=== PATIENT | male | born 1960 | race Hispanic/Latino ===

== ENCOUNTER 2023-10-23 00:53 | Emergency (ER) | payer OTHER ==
[~2023-10-23] VITALS: Ht 165.1 cm; Wt 79.4 kg
[2023-10-23 01:19] LABS: BASOPHILS # (AUTO) 0.03 K/uL (0.00-0.20); BASOPHILS % (AUTO) 0.2 % (0.0-5.0); EOSINOPHILS # (AUTO) 0.01 K/uL (0.00-0.70); EOSINOPHILS % (AUTO) 0.1 % (0.0-8.0); HEMATOCRIT 43.2 % (42-54); IMMATURE GRANULOCYTE ABSOLUTE 0.07 K/uL (0-1); LYMPHOCYTES % (AUTO) 6.5 % (21.0-51.0); MEAN CORPUSCULAR HEMOGLOBIN 28.1 pg (27.0-33.0); MEAN CORPUSCULAR VOLUME 82.4 fL (79-99); MONOCYTES # (AUTO) 0.6 K/uL (0.1-1.0); MONOCYTES % (AUTO) 3.7 % (3.0-13.0); NEUTROPHILS # (AUTO) 14.1 K/uL (1.8-7.7); NEUTROPHILS % (AUTO) 89.1 % (40.0-77.0); PLATELET COUNT (AUTO) 293 K/uL (130-400); RED BLOOD CELL COUNT(AUTO) 5.24 MIL/uL (4.50-6.20); RED CELL DISTRIBUTION WIDTH 14.8 % (11.0-15.5); WHITE BLOOD COUNT (AUTO) 15.8 K/uL (4.8-10.8)
[2023-10-23] MEDS: FAMOTIDINE 20MG VIAL IV ONE (01:24)
[2023-10-23] MEDS: ONDANSETRON 4MG INJ IVP ONE (01:24)
[2023-10-23 01:28] LABS: CREATININE 0.9 mg/dL (0.5-1.3); POTASSIUM 3.8 mmol/L (3.5-5.1)
[2023-10-23 01:33] LABS: ALBUMIN 3.9 g/dL (3.5-5.0); BILIRUBIN,TOTAL 0.5 mg/dL (0.2-1.0); TOTAL PROTEIN, SERUM 7.3 g/dL (6.0-8.3)
[2023-10-23] MEDS: 0.9%NACL 1000ML 1,000 ML IV ONE (01:38)
[2023-10-23] MEDS: MORPHINE 2 MG SYG IVP ONE (01:38)
[2023-10-23] MEDS: KETOROLAC 15MG/ML VIAL (15MG/ML) IV ONE (03:15)
[2023-10-23] MEDS: LIDOCAINE HCL 2% VISCOUS 15 ML UDCUP PO ONE (03:53)
[2023-10-23] MEDS: MAG/ALUM/SIMETH 30 ML UDCUP PO ONE (03:53)
[2023-10-23 04:08] VITALS: BP 141/67; PULSE 62; RESP 16; O2SAT 97
== END 2023-10-23 04:10 | disposition home or self-care (01) ==
LOC: EDH 00:53
DX: K21.00 Gastro-esophageal reflux disease with esophagitis, without bleeding (principal); E11.9 Type 2 diabetes mellitus without complications; Z87.19 Personal history of other diseases of the digestive system; Z98.890 Other specified postprocedural states
CPT/HCPCS: 99285; 74176; 96374; 96375; 96361; 84484; 80053; 83690; 85025; 36415; J3490; J2270; J2405; J1885

== ENCOUNTER 2023-10-24 06:20 | Inpatient (IN) | payer OTHER ==
[~2023-10-24] VITALS: Ht 167.6 cm; Wt 95.7 kg
[2023-10-24 07:04] LABS: BASOPHILS # (AUTO) 0.05 K/uL (0.00-0.20); BASOPHILS % (AUTO) 0.3 % (0.0-5.0); EOSINOPHILS # (AUTO) 0.08 K/uL (0.00-0.70); EOSINOPHILS % (AUTO) 0.4 % (0.0-8.0); HEMATOCRIT 41.3 % (42-54); IMMATURE GRANULOCYTE ABSOLUTE 0.11 K/uL (0-1); LYMPHOCYTES # (AUTO) 1.2 K/uL (1.0-4.8); LYMPHOCYTES % (AUTO) 6.2 % (21.0-51.0); MEAN CORPUSCULAR HGB CONC 33.7 g/dL (32.0-36.0); MEAN CORPUSCULAR VOLUME 83.1 fL (79-99); MONOCYTES # (AUTO) 1.7 K/uL (0.1-1.0); MONOCYTES % (AUTO) 8.7 % (3.0-13.0); NEUTROPHILS # (AUTO) 16.5 K/uL (1.8-7.7); NEUTROPHILS % (AUTO) 83.8 % (40.0-77.0); PLATELET COUNT (AUTO) 253 K/uL (130-400); RED BLOOD CELL COUNT(AUTO) 4.97 MIL/uL (4.50-6.20); WHITE BLOOD COUNT (AUTO) 19.7 K/uL (4.8-10.8)
[2023-10-24 07:09] LABS: APPEARANCE,URINE CLEAR (CLEAR); BILIRUBIN,URINE NEGATIVE (NEGATIVE); COLOR,URINE YELLOW (YELLOW); GLUCOSE, URINE (UA) >=1000 mg/dL (NEGATIVE); KETONES,URINE 100 mg/dL (NEGATIVE); LEUKOCYTE ESTERASE ,URINE NEGATIVE Leu/uL (NEGATIVE); NITRATE,URINE NEGATIVE (NEGATIVE); PH,URINE 6.5 (5.0-8.0); PROTEIN,URINE 50 mg/dL (NEGATIVE); UROBILINOGEN,URINE 0.2 mg/dL (0.2-1.0)
[2023-10-24 07:11] LABS: ADD UA MICROSCOPIC YES
[2023-10-24 07:13] LABS: MUCUS,URINE RARE LPF (None Seen)
[2023-10-24 07:17] LABS: ALBUMIN 3.4 g/dL (3.5-5.0); BILIRUBIN,TOTAL 1.3 mg/dL (0.2-1.0); CREATININE 0.9 mg/dL (0.5-1.3); TOTAL PROTEIN, SERUM 6.4 g/dL (6.0-8.3)
[2023-10-24] MEDS: PANTOPRAZOLE 40 MG/VIAL IVP ONE (07:57)
[2023-10-24] MEDS: ZOSYN 3.375GM +NS 50ML IV ONE (08:01)
[2023-10-24] MEDS: PANTOPRAZOLE 40 MG/VIAL IVP SCH (08:46)
[2023-10-24] MEDS: ZOSYN 3.375GM+NS 50ML 50 ML IV SCH (08:46)
[2023-10-24] MEDS: KETOROLAC 15MG/ML VIAL (15MG/ML) IV ONE (08:57)
[2023-10-24] MEDS: LACTATED RINGERS 1000ML 1,000 ML IV SCH (08:59)
[2023-10-24] MEDS ORDERED: ONDANSETRON 4MG INJ IV PRN (09:00)
[2023-10-24] MEDS ORDERED: MAGNESIUM 2GM PREMIX 50ML 50 ML IV PRN (13:30)
[2023-10-24] MEDS ORDERED: GLUCAGON 1MG KIT 1 MG ML IM PRN (13:30)
[2023-10-24] MEDS ORDERED: ACETAMINOPHEN 325 MG SUPPOSITORY RC PRN ×2 (13:30)
[2023-10-24] MEDS ORDERED: DEXTROSE 50%-WATER 50 ML DISP.SYRIN IV PRN (13:30)
[2023-10-24] MEDS ORDERED: POTASSIUM CHLORIDE 20MEQ/100ML 100 ML IV PRN (13:30)
[2023-10-24 14:40] VITALS: O2SAT 98
[2023-10-24 14:45] VITALS: BP 124/75; PULSE 64; RESP 18
[2023-10-24] MEDS: INSULIN HUMULIN R 100 UNIT/ML 3ML SQ SCH (16:30)
[2023-10-24 20:00] VITALS: BP 147/88; PULSE 71; RESP 18
[2023-10-24] MEDS ORDERED: KETOROLAC 15MG/ML VIAL (15MG/ML) IM PRN (21:30)
[2023-10-24 21:35] VITALS: O2SAT 97
[2023-10-24] MEDS: KETOROLAC 15MG/ML VIAL (15MG/ML) IV PRN (21:40)
[2023-10-25] VITALS (8 sets, daily range): BP systolic 117–146; BP diastolic 67–82; PULSE 59–86; RESP 18–20; TEMP 99.1; O2SAT 95–97
[2023-10-25 05:22] LABS: BASOPHILS # (AUTO) 0.05 K/uL (0.00-0.20); BASOPHILS % (AUTO) 0.3 % (0.0-5.0); EOSINOPHILS # (AUTO) 0.08 K/uL (0.00-0.70); EOSINOPHILS % (AUTO) 0.4 % (0.0-8.0); HEMATOCRIT 40.8 % (42-54); IMMATURE GRANULOCYTE ABSOLUTE 0.14 K/uL (0-1); LYMPHOCYTES # (AUTO) 1.2 K/uL (1.0-4.8); LYMPHOCYTES % (AUTO) 6.3 % (21.0-51.0); MEAN CORPUSCULAR HEMOGLOBIN 28.1 pg (27.0-33.0); MEAN CORPUSCULAR HGB CONC 33.6 g/dL (32.0-36.0); MEAN CORPUSCULAR VOLUME 83.8 fL (79-99); MONOCYTES # (AUTO) 1.6 K/uL (0.1-1.0); MONOCYTES % (AUTO) 8.4 % (3.0-13.0); NEUTROPHILS # (AUTO) 16.1 K/uL (1.8-7.7); NEUTROPHILS % (AUTO) 83.9 % (40.0-77.0); PLATELET COUNT (AUTO) 221 K/uL (130-400); RED BLOOD CELL COUNT(AUTO) 4.87 MIL/uL (4.50-6.20); WHITE BLOOD COUNT (AUTO) 19.2 K/uL (4.8-10.8)
[2023-10-25 05:44] LABS: ALBUMIN 2.8 g/dL (3.5-5.0); BILIRUBIN,TOTAL 1.2 mg/dL (0.2-1.0); MAGNESIUM 2.1 mg/dL (1.80-2.40); TOTAL PROTEIN, SERUM 6.6 g/dL (6.0-8.3)
[2023-10-25] MEDS: ACETAMINOPHEN 325 MG TAB PO PRN (09:36)
[2023-10-26] VITALS (28 sets, daily range): BP systolic 90–151; BP diastolic 44–73; PULSE 48–90; RESP 14–18; O2SAT 95–96
[2023-10-26] MEDS ORDERED: HYDRALAZINE 20MG/ML VIAL IV PRN (10:00)
[2023-10-26 10:28] LABS: HEMATOCRIT 45.1 % (42-54); MEAN CORPUSCULAR HEMOGLOBIN 27.9 pg (27.0-33.0); MEAN CORPUSCULAR HGB CONC 33.3 g/dL (32.0-36.0); RED BLOOD CELL COUNT(AUTO) 5.37 MIL/uL (4.50-6.20); WHITE BLOOD COUNT (AUTO) 18.7 K/uL (4.8-10.8)
[2023-10-26 10:44] LABS: CREATININE 1.1 mg/dL (0.5-1.3); POTASSIUM 3.4 mmol/L (3.5-5.1)
[2023-10-26 10:51] LABS: ALBUMIN 2.9 g/dL (3.5-5.0); BILIRUBIN,DIRECT 0.5 mg/dL (0.0-0.3); BILIRUBIN,TOTAL 1.4 mg/dL (0.2-1.0); TOTAL PROTEIN, SERUM 7.6 g/dL (6.0-8.3)
[2023-10-26] MEDS ORDERED: LIDOCAINE PF 100MG/5ML (2%) SYRINGE 5ML ONE (12:26)
[2023-10-26] MEDS ORDERED: DEXAMETHASONE SOD PHOSPHATE 10MG/ML 1ML VIAL ONE (12:26)
[2023-10-26] MEDS ORDERED: GLYCOPYRROLATE 0.2 MG/ML 5 ML VIAL ONE (12:27)
[2023-10-26] MEDS ORDERED: SUCCINYLCHOLINE CHLORIDE 20 MG/ML 10 ML VIAL ONE (12:27)
[2023-10-26] MEDS ORDERED: PROPOFOL 10 MG/ML 20ML VIAL IV ONE (12:27)
[2023-10-26] MEDS ORDERED: MIDAZOLAM HCL 1 MG/ML 2ML VIAL ONE (12:27)
[2023-10-26] MEDS ORDERED: NEOSTIGMINE METHYLSULFATE 1MG/ML IV ONE (12:28)
[2023-10-26] MEDS ORDERED: ONDANSETRON 4MG INJ ONE (12:29)
[2023-10-26] MEDS ORDERED: ROCURONIUM BROMIDE 10MG/1ML 5ML VL ONE ×2 (12:29→14:23)
[2023-10-26] MEDS ORDERED: FENTANYL CITRATE PF 50 MCG/1 ML 2ML VIAL ONE ×2 (12:29→13:38)
[2023-10-26] MEDS ORDERED: EPINEPHRINE PF 1MG (1:1,000) 1 MG/ML AMP ONE (12:42)
[2023-10-26] MEDS ORDERED: BUPIVACAINE/PF 0.25% 30ML VIAL IJ ONE (12:43)
[2023-10-26] MEDS: 0.9%NACL 1000ML 1,000 ML IV ONE (12:54)
[2023-10-26] MEDS: BUPIVACAINE/EPI/PF 0.25% 30ML VIAL IJ ONE (13:45)
[2023-10-26] MEDS: INDOCYANINE GREEN 25 MG VIAL IJ ONE (14:32)
[2023-10-26] MEDS: SIMETHICONE 80 MG TAB.CHEW PO SCH (18:10)
[2023-10-27] MEDS: TRAMADOL HCL 50 MG TABLET PO PRN (02:29)
[2023-10-27 05:20] VITALS: BP 106/55; PULSE 48; RESP 18
[2023-10-27 05:39] LABS: HEMATOCRIT 36.5 % (42-54); MEAN CORPUSCULAR HEMOGLOBIN 28.1 pg (27.0-33.0); MEAN CORPUSCULAR HGB CONC 33.2 g/dL (32.0-36.0); MEAN CORPUSCULAR VOLUME 84.9 fL (79-99); RED BLOOD CELL COUNT(AUTO) 4.3 MIL/uL (4.50-6.20); RED CELL DISTRIBUTION WIDTH 15.3 % (11.0-15.5); WHITE BLOOD COUNT (AUTO) 13.9 K/uL (4.8-10.8)
[2023-10-27 05:59] LABS: CREATININE 0.9 mg/dL (0.5-1.3)
[2023-10-27 08:00] VITALS: BP 107/55; PULSE 74; RESP 16; O2SAT 98
[2023-10-27 12:00] VITALS: BP 115/62; PULSE 50; RESP 16
[2023-10-27 16:00] VITALS: BP 111/59; PULSE 54; RESP 16
[2023-10-27 20:00] VITALS: O2SAT 95
[2023-10-27 20:50] VITALS: BP 103/70; PULSE 58; RESP 18
[2023-10-28] VITALS: BP 116/65; PULSE 47; RESP 18
[2023-10-28 05:03] VITALS: BP 112/82; PULSE 68; RESP 19
[2023-10-28 05:11] LABS: MEAN CORPUSCULAR HEMOGLOBIN 27.9 pg (27.0-33.0); MEAN CORPUSCULAR HGB CONC 33.6 g/dL (32.0-36.0); MEAN CORPUSCULAR VOLUME 83.1 fL (79-99); RED BLOOD CELL COUNT(AUTO) 4.33 MIL/uL (4.50-6.20); RED CELL DISTRIBUTION WIDTH 15.1 % (11.0-15.5); WHITE BLOOD COUNT (AUTO) 13.2 K/uL (4.8-10.8)
[2023-10-28 05:21] LABS: CREATININE 0.9 mg/dL (0.5-1.3); POTASSIUM 3.7 mmol/L (3.5-5.1)
[2023-10-28 08:00] VITALS: BP 129/65; PULSE 63; RESP 16; O2SAT 95
[2023-10-28 12:00] VITALS: BP 125/69; PULSE 65; RESP 16
== END 2023-10-28 17:00 | disposition home or self-care (01) | DRG 854 ==
LOC: EDH 06:20 → EDHIP 06:21 → 3DH 14:12
PROVIDERS: ADMIT Hospitalist; ATTEND Hospitalist
PROC: BF50200 Other Imaging of Bile Ducts using Fluorescing Agent, Indocyanine Green Dye, Intraoperative (ICD-10-PCS; 2023-10-26)
PROC: 0FT44ZZ Resection of Gallbladder, Percutaneous Endoscopic Approach (ICD-10-PCS; principal; 2023-10-26 13:06)
DX: A41.50 Gram-negative sepsis, unspecified (principal); K80.00 Calculus of gallbladder with acute cholecystitis without obstruction; E11.65 Type 2 diabetes mellitus with hyperglycemia; K21.00 Gastro-esophageal reflux disease with esophagitis, without bleeding; I10 Essential (primary) hypertension; E66.01 Morbid (severe) obesity due to excess calories; K82.A1 Gangrene of gallbladder in cholecystitis; N40.0 Benign prostatic hyperplasia without lower urinary tract symptoms; K59.00 Constipation, unspecified; K22.0 Achalasia of cardia; Z83.3 Family history of diabetes mellitus; Z68.34 Body mass index [BMI] 34.0-34.9, adult
CPT/HCPCS: 36415; 71045; 76705; 78226; 80048; 80053; 80076; 81001; 82948; 83605; 83690; 83735; 84145; 84484; 85025; 85027; 87040; 88304; 93005; A9537; G0378; J0171; J0330; J1100; J1815; J1885; J2001; J2250; J2405; J2470; J2543; J2704; J2710; J3010; J3490; J7030; J7120; A4215; A4222; A4223; A4600; A4649; G0168; J0665